=== PATIENT | female | born 1970 | race Two or more races ===

== ENCOUNTER 2021-12-18 05:51 | Day surgery (SDC) | payer OTHER ==
[~2021-12-18 05:51] MED LIST: CRESTOR10 MG PO; METFORMIN HCL1000 M2 PO; TAMOXIFEN CITRA20 MG PO
== END 2021-12-18 12:37 | disposition home or self-care (01) ==
LOC: CIR.AMB 05:51
PROVIDERS: ATTEND Plastic Surgery
DX: D05.11 Intraductal carcinoma in situ of right breast (principal); Z90.11 Acquired absence of right breast and nipple; Z20.822 Contact with and (suspected) exposure to COVID-19
CPT/HCPCS: 19357; C1789

== ENCOUNTER 2022-11-05 05:44 | Day surgery (SDC) | payer OTHER ==
[~2022-11-05] VITALS: Ht 162.6 cm; Wt 91.2 kg
[~2022-11-05 05:44] MED LIST changes: +COZAAR25 MG PO; +MULTIPLE VITAM1 EAC2 PO
== END 2022-11-05 14:30 | disposition home or self-care (01) ==
LOC: CIR.AMB 05:44
PROVIDERS: ATTEND Plastic Surgery
DX: Z90.11 Acquired absence of right breast and nipple (principal); N64.89 Other specified disorders of breast; N64.81 Ptosis of breast; N60.31 Fibrosclerosis of right breast; N65.1 Disproportion of reconstructed breast; E11.9 Type 2 diabetes mellitus without complications; Z79.84 Long term (current) use of oral hypoglycemic drugs; Z20.822 Contact with and (suspected) exposure to COVID-19